=== PATIENT | female | born 1975 | race Caucasian/White ===

== ENCOUNTER → 2017-02-21 | Outpatient (CLI) | payer BC ==
[~2017-02-21] MED LIST: ADAP0.1G10 TOP; BUSP-8 PO; CHOL100010 PO; DIPH25CA65 PO; LEVO88TA PO; MULT-513 PO; NORE-151 PO; SPIR50TA2 PO; VITAMIN B PO; [UNRECOGNIZED DRUG - CODE] TOP
== END | disposition home or self-care (01) ==
LOC: C.PAPS 10:46
PROVIDERS: ATTEND Obstetrics & Gynecology
DX: Z01.419 Encounter for gynecological examination (general) (routine) without abnormal findings (principal); Z87.42 Personal history of other diseases of the female genital tract

== ENCOUNTER → 2018-02-12 | Outpatient (CLI) | payer BC ==
[~2018-02-12] MED LIST changes: +GADAVIST IV PRN
--- NOTE | 2018-02-12 23:23 | DIAGNOSTIC IMAGING REPORT ---
BRAIN COMBO HISTORY: 42 years-old Female MONTEIRO,LHERMITTES SIGN,PARASTHESIA,ANISOCORIA acute headache with numbness and tingling of the toes and feet COMPARISON: Cervical spine MRI of same day TECHNIQUE: Multiplanar multisequence MRI of the brain was obtained both with and without the use of 5.5 mL Gadavist utilizing multiple sclerosis protocol FINDINGS: The large [id number] pressfitter localizer images demonstrate no gross abnormality. There is no restricted diffusion to suggest acute or subacute infarction. The midline structures including the corpus callosum, brainstem, optic chiasm, pituitary and pineal glands appear unremarkable the sagittal T1 series. No cerebellar tonsillar herniation. No acute intracranial hemorrhage, midline shift, abnormal extra-axial collections, hydrocephalus or intracranial mass. No significant T2/FLAIR signal parenchymal abnormalities to suggest demyelinating disease. There is no abnormal intra-axial or extra-axial enhancement identified. No abnormal enhancement on the delayed images. The major flow voids at the level the skull base appear patent. Orbits are symmetric and within normal limits. Paranasal sinuses are clear. Mastoid air cells are also clear. Scalp, calvarium and soft tissues are within normal limits. IMPRESSION: 1. No acute intracranial abnormality identified. 2. No abnormal enhancement or evidence of demyelinating disease. The above report was generated using voice recognition software. It may contain grammatical, syntax or spelling errors. Electronically signed by: Joshua Barnett M.D. 02/12/2018 11:22 PM Dictated Date/Time: 02/12/2018 11:13 PM
--- NOTE | 2018-02-12 23:31 | DIAGNOSTIC IMAGING REPORT ---
CERVICAL SPINE COMBO HISTORY: 42 years-old Female MONTEIRO,LHERMITTES SIGN,PARASTHESIA,ANISOCORIA acute headache with paresthesias. Concern for demyelinating disease. COMPARISON: MRI brain of same day TECHNIQUE: Multiplanar multisequence MRI of the cervical spine was obtained with and without the use of 5.5 mL Gadavist. FINDINGS: Large field view burglar alarm assembler localizer images demonstrate no gross abnormality. Imaged posterior fossa structures are unremarkable. No focal bone marrow edema, acute fracture or subluxation. No abnormal signal abnormalities identified within the brainstem, cervical or imaged thoracic spinal cord. There is no abnormal enhancement. Axial postcontrast T1 images are mildly motion degraded. There is reversal the normal cervical lordosis with slight kyphotic curvature centered at C4-C5. C2-C3: Mild uncovertebral spurring without significant central canal or foraminal narrowing. C3-C4: Mild uncovertebral spurring and small posterior disc bulge without significant central canal or foraminal narrowing. C4-C5: Small posterior disc bulge flattens the ventral thecal sac without significant central canal or foraminal narrowing. Mild uncovertebral spurring. C5-C6: No central canal or foraminal narrowing. C6-C7: No central canal or foraminal narrowing. C7-T1: No central canal or foraminal narrowing. The imaged upper thoracic levels appear unremarkable. IMPRESSION: 1. No abnormal enhancement or cervical spinal cord lesions identified to suggest demyelinating disease. 2. Small posterior disc bulges at C3-C4 and C4-C5 without significant central canal or foraminal narrowing identified. The above report was generated using voice recognition software. It may contain grammatical, syntax or spelling errors. Electronically signed by: Joshua Barnett M.D. 02/12/2018 11:30 PM Dictated Date/Time: 02/12/2018 11:22 PM
== END | disposition home or self-care (01) ==
LOC: C.MRI 17:30
PROVIDERS: ATTEND Physician Assistant
DX: M54.12 Radiculopathy, cervical region (principal); R51 Headache; H57.02 Anisocoria; R20.2 Paresthesia of skin; R53.81 Other malaise